=== PATIENT | female | born 1990 | race Caucasian/White ===

== ENCOUNTER → 2016-12-02 | Outpatient (CLI) | payer OTHER ==
--- NOTE | 2016-12-02 10:05 | US ---
EXAMINATION TYPE: US thyroid st tissue head/neck DATE OF EXAM: 12/02/2016 9:48 AM COMPARISON: NONE CLINICAL HISTORY: E04.9 Thyroid enlargement,E03.9 Hypothyroidism. GLAND SIZE: Right Lobe: 4.9 x 1.7 x 1.8 cm Overall Parenchyma: homogenous Left Lobe: 5.0 x 1.4 x 1.7 cm Overall Parenchyma: homogeneous Isthmus Thickness: 0.4 cm FINDINGS: Thyroid tissue is homogeneous. There are no solid or cystic thyroid nodules. IMPRESSION: Thyromegaly but no evidence of thyroid nodules.
--- NOTE | 2016-12-03 13:26 | NM ---
EXAMINATION TYPE: NM thyroid image w uptake DATE OF EXAM: 12/03/2016 1:16 PM COMPARISON: NONE HISTORY: Thyroid enlargement TECHNIQUE: After the intravenous administration of 11 mCi Tc 99m Sodium Pertechnetate, thyroid imagin g is performed 10 minutes post injection. Thyroid iodine uptake is calculated after the oral administ ration of 14 uCi I-131 capsule. FINDINGS: There is normal distribution of activity throughout the gland. The 4 hour iodine uptake is calculated at 18% (normal range 8-14%). The 24-hour iodine uptake is calculated at 37.5% (normal ran ge 15-35%). IMPRESSION: 1. 24-hour uptake suggest mild hyperthyroidism
== END | disposition home or self-care (01) ==
LOC: RADUSMAIN 09:28
PROVIDERS: ATTEND Family Medicine
DX: E01.0 Iodine-deficiency related diffuse (endemic) goiter (principal); E03.9 Hypothyroidism, unspecified
CPT/HCPCS: 76536; 78014; A9528; A9512

== ENCOUNTER → 2017-01-21 | Outpatient (CLI) | payer OTHER ==
--- NOTE | 2017-01-21 14:28 | US ---
EXAMINATION TYPE: US pelvic complete DATE OF EXAM: 01/21/2017 2:06 PM COMPARISON: US 2015 CLINICAL HISTORY: N39.8 Other specified abnormal uterine and vaginal. Has not had menses since been o n Depoprovera Shot and recently had DUB ? menses. TECHNIQUE: Transvaginal (TV) and Transabdominal (TA) to better assess endometrium Date of LMP: 01/17/2017 EXAM MEASUREMENTS: Uterus: 7.7 x 5.1 x 3.4 cm Endometrial Stripe: 0.3 cm Right Ovary: 2.7 x 2.6 x 2.0 cm Left Ovary: 3.4 x 1.6 x 1.7 cm 1. Uterus: Retroverted on TVUS; Small Nabothian cyst in CX = 0.3 x 0.2 x 0.2cm 2. Endometrium: no masses seen 3. Right Ovary: multiple small follicles 4. Left Ovary: multiple small follicles 5. Bilateral Adnexa: wnl 6. Posterior cul-de-sac: wnl Uterus is anteverted in shape on transvaginal ultrasound. A few tiny nabothian cysts are seen in the cervix. Endometrial stripe is not well-visualized, it is better seen on transvaginal imaging measurin g 3 mm. No free fluid is seen in pelvis. Both ovaries are unremarkable. IMPRESSION: No suspicious finding is seen to account for patient's symptoms.
== END | disposition home or self-care (01) ==
LOC: RADUSWWP 13:38
PROVIDERS: ATTEND Family Medicine
DX: N93.8 Other specified abnormal uterine and vaginal bleeding (principal)
CPT/HCPCS: 76830; 76856

== ENCOUNTER 2022-02-03 15:21 | Emergency (ER) | payer OTHER ==
--- NOTE | 2022-02-03 15:53 | XR ---
EXAMINATION TYPE: XR chest 2V DATE OF EXAM: 02/03/2022 COMPARISON: NONE TECHNIQUE: PA and lateral views submitted. HISTORY: Shortness of breath FINDINGS: The lungs are clear and there is no pneumothorax, pleural effusion, or focal pneumonia. Heart size normal. No overt failure. IMPRESSION: 1. No acute process.
[2022-02-03 17:16] VITALS: RESP 16
[2022-02-03] MEDS ORDERED: SODIUM CHLORIDE 0.9% 1,000 ML IV STA (17:18)
[2022-02-03 17:52] LABS: Basophils # (A) 0.1 k/uL (0-0.2); Basophils % (A) 1 %; Eosinophils # (A) 0.1 k/uL (0-0.7); Eosinophils % (A) 1 %; HCT 42.6 % (34.0-46.0); HGB 14.1 gm/dL (11.4-16.0); Lymphocytes # (A) 2.4 k/uL (1.0-4.8); Lymphocytes % (A) 26 %; MCH 32.6 pg (25.0-35.0); MCHC 33.2 g/dL (31.0-37.0); Mean Platelet Volume 7.8; Monocytes # (A) 0.4 k/uL (0-1.0); Monocytes % (A) 4 %; Neutrophils # (A) 5.9 k/uL (1.3-7.7); Neutrophils % (A) 66 %; Platelet Count 255 k/uL (150-450); RBC 4.34 m/uL (3.80-5.40); RDW 12.6 % (11.5-15.5)
[2022-02-03 18:03] LABS: ALT 14 U/L (4-34); AST 19 U/L (14-36); African American GFR (CKD) >90 (>60 ml/min/1.73 sqM); Albumin 4.5 g/dL (3.5-5.0); Alkaline Phosphatase 76 U/L (38-126); Anion Gap 8 mmol/L; Blood Urea Nitrogen 11 mg/dL (7-17); Calcium 9.4 mg/dL (8.4-10.2); Carbon Dioxide 25 mmol/L (22-30); Chloride 105 mmol/L (98-107); Glucose 89 mg/dL (74-99); Magnesium 2.2 mg/dL (1.6-2.3); Non-African American GFR(CKD) >90 (>60 ml/min/1.73 sqM); Potassium 4.1 mmol/L (3.5-5.1); Sodium 138 mmol/L (137-145); Total Protein 7.3 g/dL (6.3-8.2)
[2022-02-03 18:04] LABS: Appearance,Urine Cloudy (Clear); Bacteria,Urine Rare /hpf; Bilirubin,Urine Negative (Negative); Blood,Urine Negative (Negative); Color,Urine Yellow; Glucose,Urine (UA) Negative (Negative); Ketones,Urine Negative (Negative); Leukocyte Esterase,Urine Negative (Negative); Mucus,Urine Moderate /hpf; Nitrite,Urine Negative (Negative); PH, Urine 6.5 (5.0-8.0); Partial Thromboplastin Time 26.3 sec (22.0-30.0); Protein,Urine Negative (Negative); Prothrombin Time 10.9 sec (9.0-12.0); RBC,Urine 2 /hpf (0-5); Specific Gravity,Urine 1.015 (1.001-1.035); Squamous Epithelial Cell,Urine 9 /hpf (0-4); WBC,Urine 3 /hpf (0-5)
--- NOTE | 2022-02-03 18:12 | ED ---
Chest Pain HPI - General Chief Complaint: Chest Pain Stated Complaint: JAYE Time Seen by Provider: 02/03/22 17:12 Source: patient Mode of arrival: wheelchair Limitations: no limitations - History of Present Illness Initial Comments: Patient is a 31-year-old female with no past medical history presenting with chief complaint of chest pain. Patient states that just prior to arrival she had an episode of chest pain lasted approximately 20 minutes. She was walking and a normal pace when she felt a sudden onset of heaviness and tightness in the center of her chest. She states that during that time she also experienced shortness of breath. She states that after resting the pain dissipated and has not come back since. At this time she states that the pain is nowhere near the level it was during the episode. Patient admits to smoking cigarettes, states she smokes one pack a day. She denies any nausea, vomiting, abdominal pain, palpitations, history of asthma, headache, fever, chills, history of an aneurysm or hypertension, supportive hormonal control, recent travel, recent illness. - Related Data Home Medications Medication Instructions Recorded Confirmed Azithromycin [Zithromax Z-pack (6 1 tab PO DAILY 12/07/15 12/07/15 tabs)] Allergies Allergy/AdvReac Type Severity Reaction Status Date / Time No Known Allergies Allergy Verified 02/03/22 15:22 Review of Systems ROS Statement: Those systems with pertinent positive or pertinent negative responses have been documented in the HPI. ROS Other: All systems not noted in ROS Statement are negative. EKG Findings - EKG Comments: EKG Findings:: Sinus rhythm with sinus arrhythmia. Rate of 76. CT interval 141. QRS duration 82. No acute ST or T-wave changes. This EKG was also shown to and interpreted by my attending Dr. Bojorquez. Past Medical History Past Medical History: Thyroid Disorder Additional Past Medical History / Comment(s): migraines. 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 History of Any Multi-Drug Resistant Organisms: None Reported Past Surgical History: Orthopedic Surgery Additional Past Surgical History / Comment(s): D&C, rt leg-fx femur Past Anesthesia/Blood Transfusion Reactions: No Reported Reaction Past Psychological History: No Psychological Hx Reported Smoking Status: Current every day smoker Past Alcohol Use History: None Reported Past Drug Use History: None Reported - Past Family History Mother Family Medical History: No Reported History General Exam Limitations: no limitations General appearance: alert, in no apparent distress Head exam: Present: atraumatic, normocephalic, normal inspection Eye exam: Present: normal appearance, EOMI. Absent: scleral icterus Neck exam: Present: normal inspection Respiratory exam: Present: normal lung sounds bilaterally. Absent: respiratory distress, wheezes, rales, rhonchi, stridor Cardiovascular Exam: Present: regular rate, normal rhythm, normal heart sounds. Absent: systolic murmur, diastolic murmur, rubs, gallop, clicks Neurological exam: Present: alert, oriented X3, CN II-XII intact Psychiatric exam: Present: normal affect, normal mood Skin exam: Present: warm, dry, intact, normal color. Absent: rash Course Vital Signs 02/03/22 02/03/22 15:22 17:15 Temperature 97.5 F L Pulse Rate 103 H 94 Respiratory 18 16 Rate Blood Pressure 131/81 104/68 O2 Sat by Pulse 100 97 Oximetry Chest Pain [facility] Patient is a 31-year-old female presenting with chief complaint of chest pain. Patient states that she experienced an approximately 20 minute long episode of chest pain and shortness of breath at home. Described as a heaviness and tightness in the center of her chest which radiated to the back. Pain has since dissipated and has not returned. On exam heart and lungs are clear to auscultation. Tenderness on palpation of precordium. EKG shows sinus rhythm with sinus arrhythmia and ventricular rate of 76. Lab work is unremarkable, negative troponin. Chest x-ray shows no acute process. HEART Score is 1, due to her history of smoking. Patient appears stable for discharge with outpatient follow-up at this time. Follow-up with PCP in one to 2 days. Utilize Motrin and Tylenol for pain control as needed. Stay well-hydrated. Report back to ER with any worsening symptoms. Educated on alarms symptoms and return parameters. Answered all questions. Patient conveyed verbal understanding and agreed to the plan. I discussed this case with my attending Dr. Bojorquez. Disposition Clinical Impression: Precordial catch syndrome Disposition: HOME SELF-CARE Condition: Good Instructions (If sedation given, give patient instructions): Costochondritis (ED) Additional Instructions: Report back to ER if any worsening symptoms. Follow-up with your PCP in one to 2 days. Take Motrin and Tylenol for pain control as needed. Ensure that you're staying well-hydrated. Is patient prescribed a controlled substance at d/c from ED?: No Referrals: Leti Sylvester DO [Primary Care Provider] - 1-2 days Time of Disposition: 18:28
[2022-02-03 19:21] VITALS: BP 119/83; PULSE 80; TEMP 97.2
== END 2022-02-03 18:52 | disposition home or self-care (01) ==
LOC: EC 15:21
DX: R07.2 Precordial pain (principal); R06.02 Shortness of breath; F17.210 Nicotine dependence, cigarettes, uncomplicated
CPT/HCPCS: 36415; 71046; 80053; 81001; 81025; 83735; 84484; 85025; 85610; 85730; 93005; 96360; 99285

== ENCOUNTER → 2023-04-11 | Outpatient (CLI) | payer OTHER ==
--- NOTE | 2023-04-11 16:13 | CA ---
Exercise Stress Test Report Name: Rubi Miller Exam Date: 04/11/2023 09:48 Exam Location: [place] Stress Ht (in): 64 Wt (lb): 106 BSA: 1.49 Ordering Phys: Leti Sylvester DO Referring Phys: Ximena Coats Technologist: Clint Venegas Age: 32 Gender: F : 1990 Procedure CPT: Indications: R07.9 ICD-10 Codes: Patient History: Chest pain Medications: Meds past 24 hrs: Pretest Chest Pain: STRESS TEST Pardeep Protocol Exercise Duration (min:sec): 10:[address] Depressions (mm): Angina Score: Montejo Score: Resting HR (bpm): 65 Peak HR (bpm): 173 Resting BP (mmHg): 107 / 64 Peak BP (mmHg): 153 / 61 MPHR: 187 Target HR: 159 % MPHR: 93 METS: 12.1 Total Dose: Peak Dose: Atropine: Double Product: 99737 BP Response: Stress Termination: Reached target heart rate Stress Symptoms: No chest pain or symptoms Stress Summary: ECG ANALYSIS Resting ECG: Normal sinus rhythm Stress ECG: Normal sinus rhythm with no significant ST-T wave changes diagnostic for ischemia by ST segment analysis CONCLUSIONS Treadmill EKG stress test Good exercise tolerance for age, exercised for 10:26 minutes, achieving 12.1 METS, achieving a heart rate of 173 bpm Normal hemodynamic response to exercise Nonischemic ECG response to exercise Dr Johan Matias (Electronically Signed) Final Date: 11 April 2023 16:13
== END | disposition home or self-care (01) ==
LOC: RADNMMAIN 08:40
PROVIDERS: ATTEND Family Medicine
DX: R07.9 Chest pain, unspecified (principal)
CPT/HCPCS: 93017

== ENCOUNTER 2024-07-29 12:23 | Emergency (ER) | payer OTHER ==
[2024-07-29 12:31] VITALS: TEMP 97.9
[2024-07-29 13:33] LABS: Appearance,Urine Clear (Clear); Bilirubin,Urine Negative (Negative); Blood,Urine Negative (Negative); Color,Urine Light Yellow; Glucose,Urine (UA) Negative (Negative); Ketones,Urine Negative (Negative); Leukocyte Esterase,Urine Negative (Negative); Nitrite,Urine Negative (Negative); PH, Urine 7.5 (5.0-8.0); Protein,Urine Negative (Negative); Specific Gravity,Urine 1.011 (1.001-1.035); Urobilinogen,Urine <2.0 mg/dL (<2.0)
--- NOTE | 2024-07-29 13:38 | ED ---
General Adult HPI - General Chief complaint: Recheck/Abnormal Lab/Rx Stated complaint: Post-op comp Time Seen by Provider: 07/29/24 12:37 Source: patient, RN notes reviewed Mode of arrival: ambulatory Limitations: no limitations - History of Present Illness Initial comments: 34-year-old female presents to the emergency department for evaluation of vagin al/rectal pain. Patient states that she started experiencing this pain 4 to 5 days ago which is progressively gotten worse. She states that the pain is on the inside of her left vaginal wall. Patient does report that she recently had a piece of her hymen removed about 1 month ago. She states that at her follow- up she was told that she was healing well from this procedure. Patient also reports that she is currently being treated for trichomonas. She denies any abdominal pain, diarrhea. She does admit to some pressure in her rectum. She denies fever, chills. Reports normal urinary and bowel habits. - Related Data Home Medications Medication Instructions Recorded Confirmed Azithromycin [Zithromax Z-pack (6 1 tab PO DAILY 12/07/15 12/07/15 tabs)] Previous Rx's Medication Instructions Recorded Doxycycline [Vibramycin] 100 mg PO BID #20 capsule 07/29/24 HYDROcodone/APAP 5-325MG [Stanford 5] 1 each PO Q6HR PRN #12 tab 07/29/24 Allergies Allergy/AdvReac Type Severity Reaction Status Date / Time No Known Allergies Allergy Verified 07/29/24 12:31 Review of Systems ROS Statement: Those systems with pertinent positive or pertinent negative responses have been documented in the HPI. ROS Other: All systems not noted in ROS Statement are negative. Past Medical History Past Medical History: Thyroid Disorder Additional Past Medical History / Comment(s): migraines. 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 History of Any Multi-Drug Resistant Organisms: None Reported Past Surgical History: Orthopedic Surgery Additional Past Surgical History / Comment(s): D&C, rt leg-fx femur Past Anesthesia/Blood Transfusion Reactions: No Reported Reaction Past Psychological History: No Psychological Hx Reported Smoking Status: Current every day smoker Past Alcohol Use History: None Reported Past Drug Use History: None Reported - Past Family History Mother Family Medical History: No Reported History General Exam Limitations: no limitations General appearance: alert, in no apparent distress Head exam: Present: atraumatic, normocephalic, normal inspection Eye exam: Present: normal appearance, PERRL, EOMI. Absent: scleral icterus, conjunctival injection, periorbital swelling ENT exam: Present: normal exam, mucous membranes moist Respiratory exam: Present: normal lung sounds bilaterally. Absent: respiratory distress, wheezes, rales, rhonchi, stridor Cardiovascular Exam: Present: regular rate, normal rhythm, normal heart sounds. Absent: systolic murmur, diastolic murmur, rubs, gallop, clicks GI/Abdominal exam: Present: soft, normal bowel sounds. Absent: distended, tenderness, guarding, rebound, rigid External exam: Present: normal external exam By manual exam: Present: other (Palpable mass within the left vaginal wall, no visible drainable abscess) Extremities exam: Present: normal inspection, full ROM, normal capillary refill. Absent: tenderness, pedal edema, joint swelling, calf tenderness Neurological exam: Present: alert, oriented X3 Psychiatric exam: Present: normal affect, normal mood Course Vital Signs 07/29/24 07/29/24 12:28 16:31 Temperature 97.9 F Pulse Rate 114 H 90 Respiratory 16 18 Rate Blood Pressure 137/85 94/65 O2 Sat by Pulse 100 99 Oximetry Medical Decision Making - Medical Decision Making Was pt. sent in by a medical professional or institution (TORRIE Barrett, DREDGING INSPECTOR, urgent care, hospital, or shelter...) When possible be specific @ -No Did you speak to anyone other than the patient for history (EMS, parent, family, police, friend...)? What history was obtained from this source @ -No Did you review nursing and triage notes (agree or disagree)? Why? @ -I reviewed and agree with nursing and triage notes Were old charts reviewed (outside hosp., previous admission, EMS record, old EKG, old radiological studies, urgent care reports/EKG's, shelter records)? Report findings @ -No old charts were reviewed Differential Diagnosis (chest pain, altered mental status, abdominal pain women, abdominal pain men, vaginal bleeding, weakness, fever, dyspnea, syncope, headache, dizziness, GI bleed, back pain, seizure, CVA, palpatations, mental health, musculoskeletal)? @ -Bartholen abscess, phlegmon, STD, pelvic inflammatory disease, this this is not all inclusive EKG interpreted by me (3pts min.). @ -None X-rays interpreted by me (1pt min.). @ -None done CT interpreted by me (1pt min.). @ -None done U/S interpreted by me (1pt. min.). @ -None done What testing was considered but not performed or refused? (CT, X-rays, U/S, labs)? Why? @ -None What meds were considered but not given or refused? Why? @ -None Did you discuss the management of the patient with other professionals (professionals i.e. Dr., PA, DREDGING INSPECTOR, lab, RT, psych nurse, rn social work, home demonstrator, teacher, security vehicle patrol officer, case consultant)? Give summary @ -No Was smoking cessation discussed for >3mins.? @ -No Was critical care preformed (if so, how long)? @ -No Were there social determinants of health that impacted care today? How? (Homelessness, low income, unemployed, alcoholism, drug addiction, transportation, low edu. Level, literacy, decrease access to med. care, skilled nursing, rehab)? @ -No Was there de-escalation of care discussed even if they declined (Discuss DNR or withdrawal of care, Hospice)? DNR status @ -No What co-morbidities impacted this encounter? (DM, HTN, Smoking, COPD, CAD, Cancer, CVA, ARF, Chemo, Hep., AIDS, mental health diagnosis, sleep apnea, morbid obesity)? @ -None Was patient admitted / discharged? Hospital course, mention meds given and route, prescriptions, significant lab abnormalities, going to OR and other pertinent info. @ -Discharge. Patient presented to the emergency department for evaluation of vaginal pain. On examination, patient had a palpable mass within the left side of the vaginal wall. She states that she feels pressure in her rectum and is therefore concerned about possible perianal or perirectal abscess or fistula. Patient underwent laboratory studies including CBC, CMP.CBC showed no significant leukocytosis; CMP shows no significant findings; UA shows no evidence of infectious process, negative urine hCG, negative rapid trichomonas test. Patient underwent CT abdomen pelvis to evaluate for abscess formation. CT reveals a small area of slight increased density within the posterior left labia with no discrete abscess or cyst identified. Discussed these findings with patient. She will be started on doxycycline and provided a dose of Rocephin in the emergency department to cover G/C. Advised to follow-up with her ANNUAL GREENHOUSE MANAGER. She is understanding agreeable with this plan. Patient stable at time of discharge. Case discussed with Dr. Sotomayor Undiagnosed new problem with uncertain prognosis? @ -No Drug Therapy requiring intensive monitoring for toxicity (Heparin, Nitro, Insulin, Cardizem)? @ -No Were any procedures done? @ -No Diagnosis/symptom? @ -Phlegmon Acute, or Chronic, or Acute on Chronic? @ -acute Uncomplicated (without systemic symptoms) or Complicated (systemic symptoms)? @ -uncompllicated Side effects of treatment? @ -No Exacerbation, Progression, or Severe Exacerbation? @ -No Poses a threat to life or bodily function? How? (Chest pain, [place], [place], pneumonia, PE, COPD, DKA, ARF, appy, cholecystitis, CVA, Diverticulitis, Homicidal, Suicidal, threat to staff... and all critical care pts) @ -No - Lab Data Result diagrams: 07/29/24 13:56 07/29/24 13:56 Lab Results 07/29/24 07/29/24 07/29/24 Range/Units 13:19 13:19 13:56 WBC 10.7 H (3.8-10.6) k/uL RBC 4.65 (3.80-5.40) m/uL Hgb 14.9 (11.4-16.0) gm/dL Hct 45.1 (34.0-46.0) % MCV 96.9 (80.0-100.0) fL MCH 31.9 (25.0-35.0) pg MCHC 32.9 (31.0-37.0) g/dL RDW 12.0 (11.5-15.5) % Plt Count 280 (150-450) k/uL MPV 7.5 Neutrophils % 70 % Lymphocytes % 22 % Monocytes % 4 % Eosinophils % 2 % Basophils % 0 % Neutrophils # 7.4 (1.3-7.7) k/uL Lymphocytes # 2.4 (1.0-4.8) k/uL Monocytes # 0.5 (0-1.0) k/uL Eosinophils # 0.2 (0-0.7) k/uL Basophils # 0.0 (0-0.2) k/uL Sodium (137-145) mmol/L Potassium (3.5-5.1) mmol/L Chloride (98-107) mmol/L Carbon Dioxide (22-30) mmol/L Anion Gap mmol/L BUN (7-17) mg/dL Creatinine (0.52-1.04) mg/dL Est GFR (CKD-EPI)AfAm (>60 ml/min/1.73 sqM) Est GFR (CKD-EPI)NonAf (>60 ml/min/1.73 sqM) Glucose (74-99) mg/dL Plasma Lactic Acid Rony (0.7-2.0) mmol/L Calcium (8.4-10.2) mg/dL Total Bilirubin (0.2-1.3) mg/dL AST (14-36) U/L ALT (4-34) U/L Alkaline Phosphatase (38-126) U/L Total Protein (6.3-8.2) g/dL Albumin (3.5-5.0) g/dL Urine Color Light Yellow Urine Appearance Clear (Clear) Urine pH 7.5 (5.0-8.0) Ur Specific [place] 1.011 (1.001-1.035) Urine Protein Negative (Negative) Urine Glucose (UA) Negative (Negative) Urine Ketones Negative (Negative) Urine Blood Negative (Negative) Urine Nitrite Negative (Negative) Urine Bilirubin Negative (Negative) Urine Urobilinogen <2.0 (<2.0) mg/dL Ur Leukocyte Esterase Negative (Negative) Urine HCG, Qual Not Detected (Not Detectd) Trichomonas Ag (Rapid) (Negative) 07/29/24 07/29/24 07/29/24 Range/Units 13:56 13:56 13:56 WBC (3.8-10.6) k/uL RBC (3.80-5.40) m/uL Hgb (11.4-16.0) gm/dL Hct (34.0-46.0) % MCV (80.0-100.0) fL MCH (25.0-35.0) pg MCHC (31.0-37.0) g/dL RDW (11.5-15.5) % Plt Count (150-450) k/uL MPV Neutrophils % % Lymphocytes % % Monocytes % % Eosinophils % % Basophils % % Neutrophils # (1.3-7.7) k/uL Lymphocytes # (1.0-4.8) k/uL Monocytes # (0-1.0) k/uL Eosinophils # (0-0.7) k/uL Basophils # (0-0.2) k/uL Sodium 140 (137-145) mmol/L Potassium 3.9 (3.5-5.1) mmol/L Chloride 109 H (98-107) mmol/L Carbon Dioxide 23 (22-30) mmol/L Anion Gap 8 mmol/L BUN 5 L (7-17) mg/dL Creatinine 0.74 (0.52-1.04) mg/dL Est GFR (CKD-EPI)AfAm >90 (>60 ml/min/1.73 sqM) Est GFR (CKD-EPI)NonAf >90 (>60 ml/min/1.73 sqM) Glucose 96 (74-99) mg/dL Plasma Lactic Acid Rony 1.1 (0.7-2.0) mmol/L Calcium 9.8 (8.4-10.2) mg/dL Total Bilirubin 1.1 (0.2-1.3) mg/dL AST 19 (14-36) U/L ALT 15 (4-34) U/L Alkaline Phosphatase 76 (38-126) U/L Total Protein 7.2 (6.3-8.2) g/dL Albumin 4.6 (3.5-5.0) g/dL Urine Color Urine Appearance (Clear) Urine pH (5.0-8.0) Ur Specific [place] (1.001-1.035) Urine Protein (Negative) Urine Glucose (UA) (Negative) Urine Ketones (Negative) Urine Blood (Negative) Urine Nitrite (Negative) Urine Bilirubin (Negative) Urine Urobilinogen (<2.0) mg/dL Ur Leukocyte Esterase (Negative) Urine HCG, Qual (Not Detectd) Trichomonas Ag (Rapid) Negative (Negative) Disposition Clinical Impression: Vaginal pain, Phlegmonous vulvitis Disposition: HOME SELF-CARE Condition: Stable Additional Instructions: Follow-up with your ANNUAL GREENHOUSE MANAGER early next week. motor vehicle operator road supervisor your new antibiotic and take to completion along with the Flagyl. Return to the emergency department for new or worsening symptoms. Prescriptions: HYDROcodone/APAP 5-325MG [Stanford 5] 1 each PO Q6HR PRN #12 tab PRN Reason: Pain Doxycycline [Vibramycin] 100 mg PO BID #20 capsule Is patient prescribed a controlled substance at d/c from ED?: No Referrals: Leti Sylvester DO [Primary Care Provider] - 1-2 days
[2024-07-29 14:10] LABS: Basophils % (A) 0 %; Eosinophils # (A) 0.2 k/uL (0-0.7); Eosinophils % (A) 2 %; HCT 45.1 % (34.0-46.0); HGB 14.9 gm/dL (11.4-16.0); Lymphocytes # (A) 2.4 k/uL (1.0-4.8); Lymphocytes % (A) 22 %; MCH 31.9 pg (25.0-35.0); MCHC 32.9 g/dL (31.0-37.0); MCV 96.9 fL (80.0-100.0); Mean Platelet Volume 7.5; Monocytes # (A) 0.5 k/uL (0-1.0); Monocytes % (A) 4 %; Neutrophils # (A) 7.4 k/uL (1.3-7.7); Neutrophils % (A) 70 %; Platelet Count 280 k/uL (150-450); RBC 4.65 m/uL (3.80-5.40); WBC 10.7 k/uL (3.8-10.6)
[2024-07-29] MEDS: KETOROLAC 15 MG/ML 1 ML VIAL IVP STA (14:10)
[2024-07-29 14:34] LABS: ALT 15 U/L (4-34); AST 19 U/L (14-36); African American GFR (CKD) >90 (>60 ml/min/1.73 sqM); Albumin 4.6 g/dL (3.5-5.0); Alkaline Phosphatase 76 U/L (38-126); Anion Gap 8 mmol/L; Blood Urea Nitrogen 5 mg/dL (7-17); Calcium 9.8 mg/dL (8.4-10.2); Carbon Dioxide 23 mmol/L (22-30); Chloride 109 mmol/L (98-107); Glucose 96 mg/dL (74-99); Non-African American GFR(CKD) >90 (>60 ml/min/1.73 sqM); Potassium 3.9 mmol/L (3.5-5.1); Sodium 140 mmol/L (137-145); Total Bilirubin 1.1 mg/dL (0.2-1.3); Total Protein 7.2 g/dL (6.3-8.2)
--- NOTE | 2024-07-29 15:53 | CT ---
EXAMINATION TYPE: CT abdomen pelvis w con DATE OF EXAM: 07/29/2024 COMPARISON: None INDICATION: Had a surgery a month ago - had part of her hymen removed - and now has a large lump in h er groin and it hurts to sit or cough. DLP: 497.6 mGycm, Automated exposure control for dose reduction was used. CONTRAST: 100ml mL of Isovue 300. Study performed without Oral Contrast TECHNIQUE: Axial images were obtained from above the diaphragm to the pubic rami in the axial plane a t 5 mm thick sections. Reconstructed images are reviewed on the computer in the coronal plane. FINDINGS: Limited CT sections are obtained the lung bases. The lung bases are clear. CT ABDOMEN: Liver: Normal Spleen: Normal Pancreas: Normal Adrenal glands: The adrenal glands are normal. Gallbladder: Normal Kidneys: No masses are evident. No hydronephrosis is present. No cysts are present. Delayed images were obtained through the kidneys, which remain unremarkable. Aorta: Normal Inferior vena cava: Normal. CT PELVIS: Loops of bowel within the abdomen and pelvis are normal. A few diverticular changes are within the si gmoid colon This study is without oral contrast limiting lesion. Appendix: Decompressed with limited evaluation Urinary bladder: Normal. Genitourinary structures: Uterus and adnexa appear within normal limits. There may be a left peroneal posterior tibial area of slight increased density measured 0.7 cm, series 201 image 79. Correlate wi th location of the patient's discomfort. Phlegmon present. A discrete abscess is not identified. This does not appear hypoechoic suggesting cystlike structure Osseous structures: No suspicious lytic or sclerotic lesions. IMPRESSION: 1. There may be a small area of slight increased density within the posterior left labial or perinea l region. Correlate with the location of the patient's pain. Consider phlegmon. Discrete abscess or c yst not identified. 2. Mild diverticulosis without acute diverticulitis. [facility], , 07/29/2024 3:51 PM
[2024-07-29] MEDS: DOXYCYCLINE 100 MG CAP PO STA (16:28)
[2024-07-29] MEDS: cefTRIAXone IN SWFI 1,000 MG/10 ML SYRINGE IVP STA (16:28)
[2024-07-29 16:34] VITALS: BP 94/65; PULSE 90; RESP 18
== END 2024-07-29 16:35 | disposition home or self-care (01) ==
LOC: EC 12:23
DX: N76.2 Acute vulvitis (principal); F17.200 Nicotine dependence, unspecified, uncomplicated
CPT/HCPCS: 36415; 80053; 83605; 85025; 81003; 81025; 87808; 74177; 99284; 96374; 96375; J0696; J1885; Q9967